=== PATIENT | female | born 1990 | race Two or more races ===

== ENCOUNTER 2018-10-09 10:01 | Inpatient (IN) | payer OTHER, MEDICAID ==
[~2018-10-09] VITALS: Ht 157.5 cm; Wt 71.0 kg
[2018-10-09] MEDS ORDERED: LACTATED RINGERS 1,000 ML IV SCH (10:03)
[2018-10-09 10:25] LABS: BASOPHILS # (AUTO) 0.05 x10^3/uL (0-0.1); BASOPHILS % (AUTO) 1 % (0-1); EOSINOPHILS % (AUTO) 1 % (1-7); LYMPHOCYTES # (AUTO) 1.61 x10^3/uL (1-3.4); LYMPHOCYTES % (AUTO) 19 % (22-44); MD NO; MEAN CORPUSCULAR HEMOGLOBIN 30.8 pg (27.0-34.8); MEAN CORPUSCULAR VOLUME 96.3 fL (80-100); MEAN PLATELET VOLUME 9.8 fL (7.4-10.4); MONOCYTES # (AUTO) 0.56 x10^3/uL (0.2-0.8); MONOCYTES % (AUTO) 7 % (2-9); NEUTROPHILS % (AUTO) 72 % (42-75); PLATELET COUNT 200 x10^3/uL (130-400); RED BLOOD COUNT 4.22 x10^6/uL (3.82-5.3); RED CELL DISTRIBUTION WIDTH 13.8 % (9.6-15.2)
[2018-10-09] MEDS ORDERED: ONDANSETRON 2MG/ML, 2ML IVPush ONE (10:30)
[2018-10-09] MEDS ORDERED: METOCLOPRAMIDE 5 MG/ML, 2ML IV ONE (10:30)
[2018-10-09] MEDS ORDERED: PLEASE ENTER HEIGHT AND WEIGHT MC SCH (10:30)
[2018-10-09] MEDS ORDERED: CALCIUM CARBONATE 500 MG TAB.CHEW PO PRN ×2 (10:30→15:00)
[2018-10-09] MEDS ORDERED: LACTATED RINGERS 1,000 ML IVBOLUS ONE (10:30)
[2018-10-09] MEDS ORDERED: SODIUM CITRATE/CITRIC ACID 15 ML UDC PO ONE (10:30)
[2018-10-09] MEDS ORDERED: PLEASE ENTER ALLERGIES MC SCH (10:30)
[2018-10-09] MEDS ORDERED: TERBUTALINE 1 MG/ML, 1ML SQ ONE (10:30)
[2018-10-09] MEDS ORDERED: MEPERIDINE/PF 25MG/0.5ML IVPush PRN (11:00)
[2018-10-09] MEDS ORDERED: hydrALAzine 20 MG/ML, 1ML IV PRN (11:00)
[2018-10-09] MEDS ORDERED: ALBUTEROL SULFATE 2.5 MG/3 ML NPPB PRN (11:00)
[2018-10-09] MEDS ORDERED: LABETALOL 5MG/ML, 20ML IV PRN (11:00)
[2018-10-09] MEDS ORDERED: PROMETHAZINE 25 MG/ML, 1ML IV PRN (11:00)
[2018-10-09] MEDS ORDERED: FENTANYL PF 100 MCG/2ML IV PRN (11:00)
[2018-10-09] MEDS ORDERED: HYDROmorphone 2 MG/ML, 1ML IVPush PRN (11:00)
[2018-10-09] MEDS ORDERED: HYDROcodone/APAP 7.5-325MG/15ML UDC PO PRN (11:00)
[2018-10-09] MEDS ORDERED: MIDAZOLAM 1 MG/ML, 2ML IV PRN (11:00)
[2018-10-09] MEDS ORDERED: ONDANSETRON 2MG/ML, 2ML IVPush PRN (11:00)
[2018-10-09] MEDS ORDERED: OXYcodone 5 MG/5 ML ORAL.SOL UDC PO PRN ×2 (11:00→15:30)
[2018-10-09] MEDS ORDERED: EPHEDRINE 50 MG/ML, 1ML IVPush PRN (11:00)
[2018-10-09] MEDS ORDERED: NEWBORN KIT ONE (12:42)
[2018-10-09] MEDS ORDERED: MISOPROSTOL 200 MCG TABLET ONE (12:42)
[2018-10-09] MEDS ORDERED: OXYTOCIN 30U/ 0.9% NaCL 500ML 500 ML ONE (12:42)
[2018-10-09] MEDS ORDERED: EPHEDRINE 50 MG/ML, 1ML ONE (12:53)
[2018-10-09] MEDS ORDERED: KETOROLAC 30 MG/1 ML ONE (12:53)
[2018-10-09] MEDS ORDERED: DEXAMETHASONE 4 MG/ML, 1ML ONE (12:53)
[2018-10-09] MEDS ORDERED: OXYTOCIN 10 UNITS/ML, 1ML ONE (12:53)
[2018-10-09] MEDS ORDERED: ONDANSETRON 2MG/ML, 2ML ONE (12:53)
[2018-10-09] MEDS ORDERED: CEFAZOLIN 1,000 MG ONE (12:53)
[2018-10-09] MEDS ORDERED: FENTANYL PF 100 MCG/2ML ONE (12:53)
[2018-10-09] MEDS ORDERED: PHENYLEPHRINE 10 MG/ML ONE (12:53)
[2018-10-09] MEDS ORDERED: METOCLOPRAMIDE 5 MG/ML, 2ML ONE (13:10)
[2018-10-09] MEDS ORDERED: SODIUM CITRATE/CITRIC ACID 15 ML UDC ONE (13:10)
[2018-10-09] MEDS: KETOROLAC 30 MG/1 ML IV SCH ×2 (13:45→19:31)
[2018-10-09] MEDS ORDERED: HYDROmorphone 2 MG/ML, 1ML ONE ×2 (13:47→15:10)
[2018-10-09] MEDS: LACTATED RINGERS 1,000 ML IV SCH ×3 (14:42→22:42)
[2018-10-09] MEDS ORDERED: ONDANSETRON 2MG/ML, 2ML IV PRN (15:00)
[2018-10-09] MEDS ORDERED: OXYcodone IR 5MG TABLET PO PRN (15:00)
[2018-10-09] MEDS ORDERED: METHYLERGONOVINE 0.2 MG/ML IM PRN (15:00)
[2018-10-09] MEDS ORDERED: SIMETHICONE 80 MG CHEW TAB PO PRN (15:00)
[2018-10-09] MEDS ORDERED: ACETAMINOPHEN 325 MG TABLET PO PRN ×2 (15:00)
[2018-10-09] MEDS: OXYTOCIN 30U/ 0.9% NaCL 500ML 500 ML IV SCH (15:06)
[2018-10-09] MEDS ORDERED: OXYcodone 5 MG/5 ML ORAL.SOL UDC ONE (15:11)
[2018-10-09] MEDS ORDERED: HYDROmorphone 2 MG/ML, 1ML IVPush ONE (15:30)
[2018-10-09 16:50] VITALS: BP_SYST 123; BP_SYST 134; BP_DIAS 74; BP_DIAS 80
[2018-10-09] MEDS ORDERED: MEPERIDINE/PF 50 MG/ML IM PRN (17:30)
[2018-10-09 20:00] VITALS: BP 127/74
[2018-10-09] MEDS: OXYcodone/APAP 5/325MG TABLET PO PRN (21:33)
[2018-10-10] VITALS: BP 108/65
[2018-10-10] MEDS: OXYTOCIN 30U/ 0.9% NaCL 500ML 500 ML IV SCH ×3 (00:42→21:55)
[2018-10-10] MEDS: LACTATED RINGERS 1,000 ML IV SCH ×6 (00:42→23:12)
[2018-10-10] MEDS: OXYcodone/APAP 5/325MG TABLET PO PRN ×3 (01:42→14:46)
[2018-10-10] MEDS: KETOROLAC 30 MG/1 ML IV SCH ×4 (01:42→20:56)
[2018-10-10 03:55] VITALS: BP 104/64
[2018-10-10 06:09] LABS: BASOPHILS # (AUTO) 0.04 x10^3/uL (0-0.1); BASOPHILS % (AUTO) 0 % (0-1); EOSINOPHILS # (AUTO) 0.03 x10^3/uL (0-0.4); EOSINOPHILS % (AUTO) 0 % (1-7); LYMPHOCYTES % (AUTO) 12 % (22-44); MD NO; MEAN CORPUSCULAR HEMOGLOBIN 31.7 pg (27.0-34.8); MEAN CORPUSCULAR HGB CONC 32.6 g/dL (32.4-35.8); MEAN CORPUSCULAR VOLUME 97.1 fL (80-100); MEAN PLATELET VOLUME 10.5 fL (7.4-10.4); MONOCYTES % (AUTO) 7 % (2-9); NEUTROPHILS # (AUTO) 8.44 x10^3/uL (1.8-6.8); NEUTROPHILS % (AUTO) 80 % (42-75); PLATELET COUNT 168 x10^3/uL (130-400); RED BLOOD COUNT 3.57 x10^6/uL (3.82-5.3); RED CELL DISTRIBUTION WIDTH 13.9 % (9.6-15.2)
[2018-10-10 07:40] VITALS: BP 118/74
[2018-10-10] MEDS: PRENATAL VIT/IRON/FA 1 EACH TABLET PO SCH (07:47)
[2018-10-10] MEDS: DOCUSATE 100 MG CAPSULE PO PRN (07:47)
[2018-10-10 12:15] VITALS: BP 115/75
[2018-10-10 19:20] VITALS: BP 126/82
[2018-10-11] MEDS: KETOROLAC 30 MG/1 ML IV SCH ×2 (01:50→07:53)
[2018-10-11] MEDS: LACTATED RINGERS 1,000 ML IV SCH ×5 (05:23→22:52)
[2018-10-11] MEDS: OXYTOCIN 30U/ 0.9% NaCL 500ML 500 ML IV SCH ×2 (05:23→18:59)
[2018-10-11 07:45] VITALS: BP 133/80
[2018-10-11] MEDS: PRENATAL VIT/IRON/FA 1 EACH TABLET PO SCH (07:53)
[2018-10-11] MEDS: OXYcodone/APAP 5/325MG TABLET PO PRN (07:53)
[2018-10-11] MEDS: DOCUSATE 100 MG CAPSULE PO PRN (07:53)
[2018-10-11] MEDS: IBUPROFEN 800 MG TABLET PO PRN (14:41)
[2018-10-11 20:42] VITALS: BP 132/73
[2018-10-12] MEDS: IBUPROFEN 800 MG TABLET PO PRN (00:18)
[2018-10-12] MEDS: LACTATED RINGERS 1,000 ML IV SCH ×3 (02:42→12:42)
[2018-10-12] MEDS: OXYTOCIN 30U/ 0.9% NaCL 500ML 500 ML IV SCH ×2 (02:42→12:42)
[2018-10-12] MEDS: OXYcodone/APAP 5/325MG TABLET PO PRN (07:01)
[2018-10-12 07:15] VITALS: BP 140/83
[2018-10-12] MEDS ORDERED: IBUP-1222 PO (08:58)
[2018-10-12] MEDS ORDERED: OXYC-302 PO (08:59)
[2018-10-12] MEDS: PRENATAL VIT/IRON/FA 1 EACH TABLET PO SCH (09:00)
== END 2018-10-12 12:57 | disposition home or self-care (01) | DRG 788 ==
LOC: LDIP 10:01 → 2NW 16:35
PROVIDERS: ADMIT Obstetrics & Gynecology; ATTEND Obstetrics & Gynecology
PROC: 10D00Z1 Extraction of Products of Conception, Low, Open Approach (ICD-10-PCS; principal; 2018-10-09)
DX: O32.2XX0 Maternal care for transverse and oblique lie, not applicable or unspecified (principal); Z37.0 Single live birth; Z3A.39 39 weeks gestation of pregnancy; O32.1XX0 Maternal care for breech presentation, not applicable or unspecified
CPT/HCPCS: 36415; 76805; 85025; 86850; 86900; G0378; J0690; J1100; J1170; J1885; J2175; J2405; J3010; J2370; J2590; J2765; J7120